=== PATIENT | female | born 1995 | race Caucasian/White ===

== ENCOUNTER → 2023-11-06 | Outpatient (CLI) | payer OTHER ==
[~2023-11-06] MED LIST: LIDOCAINE 1% MDV 20ML VIAL As Ordered ONE
[2023-11-06 08:30] VITALS: TEMP 97.9
[2023-11-06 09:15] VITALS: BP 153/91; O2SAT 100
== END ==
LOC: M IRPRO 08:14
PROVIDERS: ATTEND Otolaryngology
DX: D44.0 Neoplasm of uncertain behavior of thyroid gland (principal)

== ENCOUNTER 2024-04-29 02:04 | Emergency (ER) | payer OTHER ==
[~2024-04-29] VITALS: Ht 157.5 cm; Wt 93.0 kg
[2024-04-29 06:12] VITALS: BP 133/70; TEMP 98.4; O2SAT 99
== END 2024-04-29 07:02 | disposition home or self-care (01) ==
LOC: M ED 02:04
DX: Z71.1 Person with feared health complaint in whom no diagnosis is made (principal); Z97.5 Presence of (intrauterine) contraceptive device; E04.1 Nontoxic single thyroid nodule; Z88.2 Allergy status to sulfonamides; Z88.5 Allergy status to narcotic agent; Z88.8 Allergy status to other drugs, medicaments and biological substances

== ENCOUNTER → 2024-06-06 | Outpatient (CLI) | payer OTHER | LOC: M WHC 08:46 | PROVIDERS: ATTEND Otolaryngology | DX: D44.0 Neoplasm of uncertain behavior of thyroid gland (principal) ==